=== PATIENT | female | born 1975 | race Hispanic/Latino ===

== ENCOUNTER 2020-07-22 17:01 | Observation (INO) | payer BC ==
[~2020-07-22] VITALS: Ht 165.1 cm; Wt 142.9 kg
[2020-07-22] MEDS ORDERED: LABETALOL HCL 5 MG/ML 20ML VIAL IV STA (17:41)
[2020-07-22] MEDS ORDERED: SODIUM CHLORIDE FLUSH 10 ML SYR INJ PRN (17:45)
[2020-07-22] MEDS ORDERED: ONDANSETRON HCL INJ 2MG/ML 2ML 2 MG/ML VIAL IV STA (18:21)
[2020-07-22] MEDS ORDERED: NITROGLYCERIN 2% OINT 1 GM PKT TOP ONE (18:30)
[2020-07-22] MEDS ORDERED: MORPHINE SULFATE INJ 4 MG/ML INJ 1ML IV ONE (18:30)
[2020-07-22] MEDS ORDERED: NITROGLYCERIN 2% OINT 1 GM PKT ONE (18:34)
[2020-07-22] MEDS ORDERED: MORPHINE SULFATE INJ 4 MG/ML INJ 1ML ONE (18:34)
[2020-07-22] MEDS ORDERED: METOPROLOL TARTRATE 50 MG TAB PO SCH (19:15)
[2020-07-22] MEDS ORDERED: MORPHINE SULFATE INJ 4 MG/ML INJ 1ML IV PRN (19:15)
[2020-07-22] MEDS ORDERED: ASPIRIN 81 MG CHEW TAB PO ONE (19:15)
[2020-07-22] MEDS: ONDANSETRON HCL INJ 2MG/ML 2ML 2 MG/ML VIAL IV PRN (20:05)
[2020-07-22] MEDS: FAMOTIDINE 20 MG/2 ML VIAL IV SCH (20:05)
[2020-07-22] MEDS ORDERED: FAMOTIDINE 20 MG/2 ML VIAL IV ONE (20:16)
[2020-07-22] MEDS ORDERED: ONDANSETRON HCL INJ 2MG/ML 2ML 2 MG/ML VIAL ONE (20:16)
[2020-07-22 21:46] VITALS: BP 124/76
[2020-07-22 22:27] VITALS: BP 124/76
[2020-07-22 23:11] VITALS: BP 124/76
[2020-07-23] MEDS ORDERED: ACETAMINOPHEN 325 MG TAB PO PRN
[2020-07-23 00:24] VITALS: BP 120/69
[2020-07-23 04:50] VITALS: BP_SYST 120; BP_SYST 136; BP_DIAS 69; BP_DIAS 75; BP_DIAS 80
[2020-07-23 05:40] LABS: BASOPHILS % 0.3 % (0.0-1.0); EOSINOPHILS # (AUTO) 0.1 (0.0-0.4); EOSINOPHILS % 0.5 % (0.0-6.0); HEMATOCRIT 37.5 % (34.2-44.1); HEMOGLOBIN 11.7 g/dL (12.0-16.0); LYMPHOCYTES % 18.4 % (18.0-39.1); MEAN CORPUSCULAR HEMOGLOBIN 24.5 pg (28-32); MEAN CORPUSCULAR HGB CONC 31.2 g/dL (31-35); MEAN CORPUSCULAR VOLUME 78.5 fL (81-99); MONOCYTES # (AUTO) 0.8 (0.2-0.8); MONOCYTES % 7.3 % (4.4-11.3); NEUTROPHILS # (AUTO) 7.9 (2.1-6.9); NEUTROPHILS % 73.1 % (38.7-80.0); PLATELET COUNT 317 x10e3/uL (140-360); RED BLOOD COUNT 4.78 x10e6/uL (3.6-5.1)
[2020-07-23] MEDS: NITROGLYCERIN 2% OINT 1 GM PKT TOP SCH ×3 (06:00→12:00)
[2020-07-23 06:08] LABS: ANION GAP 15.5 mmol/L (8-16); BLOOD UREA NITROGEN 16 mg/dL (7-26); BUN/CREATININE RATIO 23 (6-25); CALCIUM 8.9 mg/dL (8.4-10.2); CARBON DIOXIDE 26 mmol/L (22-29); CHLORIDE 101 mmol/L (98-107); CHOL/HDL RATIO 3.2 (3.0-3.6); CHOLESTEROL 163 MD/DL (0-199); CREATININE, SERUM 0.71 mg/dL (0.57-1.11); EST GLOMERULAR FILTRATION RATE > 60 ML/MIN (60-); GLUCOSE 119 mg/dL (74-118); HDL CHOLESTEROL 51 MG/DL (40-60); LDL CHOLESTEROL 97 MG/DL (60-130); MAGNESIUM 1.9 MG/DL (1.3-2.1); POTASSIUM 3.5 mmol/L (3.5-5.1); SODIUM 139 mmol/L (136-145); TRIGLYCERIDES 76 MG/DL (0-149)
[2020-07-23 06:35] LABS: CREATINE KINASE MB 0.1 ng/mL (0-5.0)
[2020-07-23] MEDS: ONDANSETRON HCL INJ 2MG/ML 2ML 2 MG/ML VIAL IV PRN (07:28)
[2020-07-23 07:42] VITALS: BP 129/68
[2020-07-23 08:29] VITALS: BP 129/68
[2020-07-23] MEDS: FAMOTIDINE 20 MG/2 ML VIAL IV SCH (09:04)
[2020-07-23 11:49] LABS: CREATINE KINASE MB 0.1 ng/mL (0-5.0)
[2020-07-23 11:56] VITALS: BP 126/72
[2020-07-23 15:28] VITALS: BP 120/78
== END 2020-07-23 15:45 | disposition home or self-care (01) ==
LOC: FSED 17:33 → ERHOLD 19:22 → MED/SURG2 21:23
PROVIDERS: ADMIT Internal Medicine; ATTEND Internal Medicine
DX: R07.2 Precordial pain (principal); E66.01 Morbid (severe) obesity due to excess calories; Z68.43 Body mass index [BMI] 50.0-59.9, adult; I10 Essential (primary) hypertension; R60.0 Localized edema; Z20.822 Contact with and (suspected) exposure to COVID-19
CPT/HCPCS: 36415; 70450; 71046; 80048 ×2; 80061; 80076; 80307; 81003; 81025; 82550; 82553 ×2; 83735; 83880; 84484 ×2; 85025 ×2; 85379; 85610; 93005; 93306; 99284; G0378 ×2; J2270; J2405 ×2; U0002